=== PATIENT | male | born 1980 | race Caucasian/White ===

== ENCOUNTER → 2018-12-07 | Outpatient (CLI) | payer MEDICAID ==
--- NOTE | 2018-12-14 09:00 | MR ---
EXAMINATION TYPE: MR lumbar spine wo con DATE OF EXAM: 12/07/2018 COMPARISON: None at this institution HISTORY: Low back pain per order. Bulging disc for 2 years causing pain into left lower extremity per patient with recent fall trauma October 19. TECHNIQUE: Multiplanar, multisequence imaging of the lumbar spine is performed without IV contrast. FINDINGS: Sagittal images of the lumbar spine show vertebral body heights to appear satisfactory. The re is slight grade 1 retrolisthesis L5 on S1 measured roughly 4 mm on sagittal image 7. There is disc desiccation with moderate to severe disc space narrowing most prominent posteriorly L5-S1 level. Po sterior disc herniation is present on sagittal images. The conus medullaris is normal in position and signal ending at L1 level. The bone marrow signal intensity is within normal limits. Axial images show the T12-L1, L1-L2, L2-L3, L3-L4, and L4-L5 levels all to appear within normal limit s. Axial images at the L5-S1 level show mild broad disc bulge with prominent broad-based central disc pr otrusion effacing the anterior thecal sac measuring approximately 17 mm transversely axial image 8. T here is some increased prominence of epidural fat at this level. There is mild bilateral anterior inf erior neural foraminal narrowing. Encroachment on bilateral central S1 nerve needs to be considered. Paraspinal muscle bulk is preserved. No suspicious incidental retroperitoneal findings noted. IMPRESSION: Spondylolisthesis and significant degenerative changes L5-S1 level as detailed above. If outside imaging becomes available an addendum may be issued.
== END | disposition home or self-care (01) ==
LOC: RADMRIMAIN 09:16
PROVIDERS: ATTEND Internal Medicine
DX: M47.817 Spondylosis without myelopathy or radiculopathy, lumbosacral region (principal); M51.27 Other intervertebral disc displacement, lumbosacral region; M48.07 Spinal stenosis, lumbosacral region
CPT/HCPCS: 72148

== ENCOUNTER → 2021-09-20 | Outpatient (CLI) | payer BC ==
--- NOTE | 2021-09-20 09:47 | CT ---
EXAMINATION TYPE: CT sinus wo con DATE OF EXAM: 09/20/2021 COMPARISON: None HISTORY: 40 year-old male J32.9, CHRONIC SINUSITIS CT DLP: 577 mGycm Automated exposure control for dose reduction was used. TECHNIQUE: Noncontrast axial views of the paranasal sinuses were obtained. Coronal reconstructions pe rformed. FINDINGS: PARANASAL SINUSES: Mild mucosal thickening throughout the maxillary, ethmoid, and right frontal sinuses. 1.2 cm polyp or mucosal retention cyst mid left ethmoid air cells. The partial opacification left sphenoid sinus. Multiple polyps or mucosal retention cysts along the floors of the maxillary sinuses measuring up to 1.9 cm on the left and 2.2 cm on the right. There is no air-fluid level. Reactive thanh- osteogenesis is not seen. There is no destruction of the osseous galicia of the paranasal sinuses. THE NASAL CAVITY: There is enlargement of the space through the level of the maxillary infundibula that may relate to p rior surgery. Osteomeatal complexes are widely patent. Slight rightward undulation of the anterior nasal septum. The imaged brain and orbits shows no gross abnormality. Visualized mastoid air cells and middle ear cavities are well pneumatized. Reformatted images confirm above findings. IMPRESSION: Mild to moderate chronic lora sinus disease with scattered mild mucosal thickening and some polyps or mucosal retention cysts along the floors of the bilateral maxillary sinuses. Possible prior maxillary antrectomies. Clinically correlate. There is also probably partial opacification left sphenoid sinus that may be seen with an acute sinusitis.
== END | disposition home or self-care (01) ==
LOC: RADCTMAIN 08:05
PROVIDERS: ATTEND Otolaryngology
DX: J32.9 Chronic sinusitis, unspecified (principal)
CPT/HCPCS: 70486

== ENCOUNTER → 2024-06-28 | Outpatient (CLI) | payer BC ==
[2024-06-28 17:48] LABS: Basophils % (A) 1.4 %; Eosinophils # (A) 0.12 X 10*3/uL (0.04-0.35); Eosinophils % (A) 1.7 %; HCT 45.3 % (39.6-50.0); HGB 15.4 g/dL (13.0-17.0); Lymphocytes # (A) 2.39 X 10*3/uL (0.90-5.00); Lymphocytes % (A) 33.8 %; MCH 29.6 pg (27.0-32.0); MCV 86.9 FL (80.0-97.0); Mean Platelet Volume 10.2 FL (9.5-12.2); Monocytes # (A) 0.54 X 10*3/uL (0.20-1.00); Monocytes % (A) 7.6 %; NRBC Per 100 WBC 0 X 10*3/uL (0.00-0.01); Neutrophils % (A) 55.1 %; Platelet Count 396 X 10*3/uL (140-440); RBC 5.21 X 10*6/uL (4.40-5.60); RDW 12.5 % (11.5-14.5); WBC 7.08 X 10*3/uL (4.50-10.00)
[2024-06-28 18:37] LABS: AST 18 U/L (14-35); Albumin 4.4 g/dL (3.8-4.9); BUN/Creat Ratio 16.27 Ratio (12.00-20.00); Blood Urea Nitrogen 17.9 mg/dL (9.0-27.0); Calcium 9.5 mg/dL (8.7-10.3); Carbon Dioxide 22.9 mmol/L (21.6-31.8); Chloride 105 mmol/L (96-109); Globulin 2.2 g/dL (1.6-3.3); Glucose 102 mg/dL (70-110); Iron 117 UG/DL (65-175); Potassium 4.8 mmol/L (3.5-5.5); Sodium 139 mmol/L (135-145); Total Bilirubin 0.4 mg/dL (0.3-1.2); Total Iron Binding Capacity 312 UG/DL (228-460); Total Protein 6.6 g/dL (6.2-8.2)
[2024-06-28 18:38] LABS: ALT 25 U/L (10-49); Alkaline Phosphatase 68 U/L (41-126); Bilirubin, Conjugated <0.20 mg/dL (0.20-0.40); Bilirubin,Unconjugated >0.20 mg/dL (0.20-1.00); T4, Free (Free Thyroxine) 1.19 ng/dL (0.80-1.80)
== END | disposition home or self-care (01) ==
LOC: LABWHC1 09:17
PROVIDERS: ATTEND Psychiatry & Neurology Psychiatry
DX: Z13.228 Encounter for screening for other metabolic disorders (principal); M25.59 Pain in other specified joint; F33.0 Major depressive disorder, recurrent, mild; E66.9 Obesity, unspecified; Z68.35 Body mass index [BMI] 35.0-35.9, adult
CPT/HCPCS: 36415; 80053; 82248; 82306; 82465; 82533; 82607; 82746; 83036; 83525; 83540; 83550; 84439; 84443; 84481; 85025